=== PATIENT | female | born 1935 | race Caucasian/White ===

== ENCOUNTER 2016-02-28 15:23 | Emergency (ER) | payer MEDICARE, OTHER ==
[~2016-02-28] VITALS: Ht 160 cm; Wt 85.0 kg
[2016-02-28 15:30] VITALS: BP 183/103; PULSE 74; RESP 16; TEMP 98.1; O2SAT 98
[2016-02-28] MEDS ORDERED: TETANUS/DIPHTHERIA TOXOID ADULT 0.5 ML VIAL IM ONE (20:00)
--- NOTE | 2016-02-28 20:00 | PD ---
HPI Chief Complaint: Fall Time Seen by Provider: 19:50 Travel History International Travel<30 days: No Contact w/Intl Traveler<30days: No Traveled to known affect area: No History of Present Illness HPI 81-year-old female with history of A. fib on Eliquis, brought in by private vehicle for evaluation of head trauma after a fall. The patient was attempting to use a public restroom without sitting on the toilet when she fell forward striking her head. She denies LOC. She now complains of some left forehead pain, neck pain, and bilateral shoulder pain. No paresthesias or motor deficits. No visual disturbances. Mild nausea but no vomiting. No chest pain or dyspnea. [place] cervical collar placed in triage. [facility] Past Medical History Hx Anticoagulant Therapy: Yes (ELIQUIS) Cardiovascular Problems: Yes (A-FIB, HTN) Diabetes: Yes Past Surgical History Hysterectomy: Yes Social History Tobacco Use: No Allergies-Medications (Allergen,Severity, Reaction): Coded Allergies: Penicillin (Verified Allergy, Intermediate, RASH, 02/28/16) Reported Meds & Prescriptions Reported Meds & Active Scripts Active Levaquin (Levofloxacin) 500 Mg Tab 500 Mg PO DAILY 5 Days Reported Metformin (Metformin HCl) 500 Mg Tab 500 Mg PO DAILY With a meal Diovan Hct (Valsartan-Hydrochlorothiazide) 160-12.5 Mg Tab 1 Tab PO DAILY Metoprolol Succinate ER 24 HR (Metoprolol Succinate) 50 Mg Tab 50 Mg PO DAILY Metoprolol Succinate ER 24 HR (Metoprolol Succinate) 100 Mg Tab 100 Mg PO DAILY Digoxin 0.25 Mg Tab 0.25 Mg PO DAILY Eliquis (Apixaban) 5 Mg Tab 5 Mg PO BID Review of Systems Except as stated in HPI: all other systems reviewed are Neg Physical Exam Narrative GENERAL: Well-developed, well-nourished, awake, alert, GCS 15, no acute distress. SKIN: Warm and dry. Small superficial laceration to bridge of nose with no active bleeding. HEAD: Left forehead ecchymosis with underlying hematoma. No craniofacial step- offs. Normocephalic. EYES: Pupils equal and round. EOMI. No scleral icterus. No injection or drainage. ENT: No nasal bleeding or discharge. Mucous membranes pink and moist. Skin exam as above. No nasal septal hematoma. NECK: Trachea midline. No JVD. No midline cervical spine step-off or tenderness. CARDIOVASCULAR: Irregularly irregular. RESPIRATORY: No accessory muscle use. Clear to auscultation. Breath sounds equal bilaterally. GASTROINTESTINAL: Abdomen soft, non-tender, nondistended. MUSCULOSKELETAL: No obvious deformities. No clubbing. No cyanosis. No edema. Normal range of motion in all joints and extremities. No midline vertebral step -off or tenderness. NEUROLOGICAL: Awake and alert. No obvious cranial nerve deficits. Motor grossly within normal limits. Normal speech. PSYCHIATRIC: Appropriate mood and affect; insight and judgment normal. Data Data Last Documented VS Vital Signs Date Time Temp Pulse Resp B/P Pulse Ox O2 Delivery O2 Flow Rate FiO2 02/28/16 21:30 64 16 153/86 97 02/28/16 15:[address] Brain W/O Iv Contrast(Rout) (02/28/16 ) Ct Cerv Spine W/O Contrast (02/28/16 ) Ct Facial Bones W/O Iv Cont (02/28/16 ) Chest, Single Ap (02/28/16 ) Tetanus/Diphtheria Tox Adult (Tetanus/Di (02/28/16 20:00) ^ Wound Care (02/28/16 20:00) Levofloxacin (Levaquin) (02/28/16 21:00) MDM Medical Decision Making Medical Screen Exam Complete: Yes Emergency Medical Condition: Yes Differential Diagnosis Closed head injury, intracranial trauma, facial bone fracture, cervical spine injury Narrative Course Vital signs reviewed. Chest x-ray shows no acute disease. CT head shows frontal soft tissue contusion, no acute intracranial disease. CT facial bones shows left-sided facial/frontal soft tissue swelling/contusion, no fracture, chronic left sphenoid sinusitis. CT cervical spine shows no fracture, minimal degenerative retrolisthesis on C4 and C5. Cervical collar removed. The patient and the patient's family were made aware of all findings. She reports chronic sinus pressure. I will start her on Levaquin for this. Nasal laceration thoroughly irrigated. It does not require repair. Bacitracin and Band-Aid applied. She is stable for discharge home with outpatient follow-up with her primary care physician this week. Both the patient and the patient's family were informed on when to return to the emergency department. They verbalized understanding and agreement with plan. Diagnosis Primary Impression: Fall Qualified Code: W19.XXXA - Fall, initial encounter Additional Impressions: Nasal laceration Qualified Code: S01.21XA - Nasal laceration, initial encounter Closed head injury Qualified Code: S09.90XA - Closed head injury, initial encounter Chronic sinusitis Qualified Code: J32.3 - Chronic sphenoidal sinusitis Referrals: Primary Care Physician 3 days Additional Instructions: Follow-up with your primary care physician this week. Return to the emergency department for worsening symptoms or any other concerns as discussed. Scripts Levofloxacin (Levaquin)500 Mg Eyn444 Mg PO DAILY 5 Days Ref 0 Prov:Fran Winter MD 02/28/16 Disposition: 01 DISCHARGE HOME Condition: Stable Fran Winter MD Feb 28, 2016 20:00
[2016-02-28] MEDS ORDERED: APIX5TAB PO (20:09)
[2016-02-28] MEDS ORDERED: METF500T PO (20:09)
[2016-02-28] MEDS ORDERED: METO50TA11 PO (20:09)
[2016-02-28] MEDS ORDERED: METO100T9 PO (20:09)
[2016-02-28] MEDS ORDERED: DIGO0.25 PO (20:09)
[2016-02-28] MEDS ORDERED: DIOV160T3 PO (20:09)
--- NOTE | 2016-02-28 20:27 | RADHPO ---
EXAM DATE/TIME: 02/28/2016 20:08 [facility] COMPARISON: No previous studies available for comparison. INDICATIONS : Trauma to chest post fall today MEDICAL HISTORY : A-fib SURGICAL HISTORY : None. ENCOUNTER: Initial ACUITY: 1 day PAIN SCORE: 0/10 LOCATION: Bilateral chest FINDINGS: A single view of the chest demonstrates the lungs to be symmetrically aerated without evidence of mas s, infiltrate or effusion. The cardiomediastinal contours are unremarkable. Mild cardiomegaly. Osse ous structures are intact. CONCLUSION: No acute disease. Mild cardiomegaly. Hemant Gunderson MD on February 28, 2016 at 20:25 Board Certified Radiologist. This report was verified electronically.
--- NOTE | 2016-02-28 20:33 | RADHPO ---
EXAM DATE/TIME: 02/28/2016 20:12 [facility] COMPARISON: No previous studies available for comparison. INDICATIONS : Trauma, fall. RADIATION DOSE: 64.42 CTDIvol (mGy) MEDICAL HISTORY : Hypertension. Diabetes mellitus type 2. SURGICAL HISTORY : None. ENCOUNTER: Initial ACUITY: 1 day PAIN SCALE: 4/10 LOCATION: cranial TECHNIQUE: Multiple contiguous axial images were obtained of the head. Using automated exposure control and adj ustment of the mA and/or kV according to patient size, radiation dose was kept as low as reasonably a chievable to obtain optimal diagnostic quality images. FINDINGS: CEREBRUM: The ventricles are normal for age. No evidence of midline shift, mass lesion, hemorrhage or acute in farction. No extra-axial fluid collections are seen. POSTERIOR FOSSA: The cerebellum and brainstem are intact. The 4th ventricle is midline. The cerebellopontine angle i s unremarkable. EXTRACRANIAL: The visualized portion of the orbits is intact. Frontal soft tissue swelling. SKULL: The calvaria is intact. No evidence of skull fracture. CONCLUSION: Frontal soft tissue contusion. No acute intracranial disease. Hemant Gunderson MD on February 28, 2016 at 20:32 Board Certified Radiologist. This report was verified electronically.
--- NOTE | 2016-02-28 20:40 | RADHPO ---
EXAM DATE/TIME: 02/28/2016 20:12 [facility] COMPARISON: No previous studies available for comparison. INDICATIONS : Trauma, fall. RADIATION DOSE: 26.23 CTDIvol (mGy) MEDICAL HISTORY : Hypertension. SURGICAL HISTORY : None. ENCOUNTER: Initial ACUITY: 1 day PAIN SCALE: 4/10 LOCATION: neck TECHNIQUE: Volumetric scanning of the cervical spine was performed. Multiplanar reconstructions in the sagittal, coronal and oblique axial planes were performed. Using automated exposure control and adjustment o f the mA and/or kV according to patient size, radiation dose was kept as low as reasonably achievable to obtain optimal diagnostic quality images. FINDINGS: VERTEBRAE: Normal vertebral body height. Multilevel degenerative changes. Minimal retrolisthesis C4-5 otherwise normal alignment. Multilevel posterior disc osteophyte complexes. No significant canal stenosis. CONCLUSION: No fracture. Minimal degenerative retrolisthesis C4 on C5. Hemant Gunderson MD on February 28, 2016 at 20:37 Board Certified Radiologist. This report was verified electronically.
--- NOTE | 2016-02-28 20:42 | RADHPO ---
EXAM DATE/TIME: 02/28/2016 20:12 [facility] COMPARISON: No previous studies available for comparison. INDICATIONS : Trauma, fall. RADIATION DOSE: 25.68 CTDIvol (mGy) MEDICAL HISTORY : Hypertension. SURGICAL HISTORY : None. ENCOUNTER: Initial ACUITY: 1 day PAIN SCORE: 5/10 LOCATION: nasal TECHNIQUE: Volumetric scanning of the facial bones was performed. Using automated exposure control and adjustme nt of the mA and/or kV according to patient size, radiation dose was kept as low as reasonably achiev able to obtain optimal diagnostic quality images. FINDINGS: ORBITS: The orbital and infraorbital osseous structures are intact. The retroconal structures have a normal configuration. No radiopaque foreign bodies are seen. NASAL BONE: The nasal bone and maxillary spine are intact ZYGOMATIC ARCHES: Symmetric without evidence of fracture. SINUSES: The maxillary, ethmoid and frontal sinuses are intact. No air-fluid levels seen. Chronic left spheno id sinus disease. NASAL CAVITY: The nasal septum is intact and midline. The lacrimal ducts are intact. SOFT TISSUES: No radiopaque foreign bodies seen. Left-sided frontal/facial contusion/soft tissue swelling is seen. INTRACRANIAL: No intracranial air seen. CRIBIFORM PLATE: Grossly intact. CONCLUSION: 1. Left sided facial/frontal soft tissue swelling/contusion. 2. No fracture. 3. Chronic left sphenoid sinusitis. Hemant Gunderson MD on February 28, 2016 at 20:38 Board Certified Radiologist. This report was verified electronically.
[2016-02-28] MEDS ORDERED: LEVA500T PO (20:53)
[2016-02-28] MEDS ORDERED: LEVOFLOXACIN 500 MG TAB PO ONE (21:00)
[2016-02-28 21:30] VITALS: BP 153/86
== END 2016-02-28 21:36 | disposition home or self-care (01) ==
LOC: PHED 15:23
DX: S09.90XA Unspecified injury of head, initial encounter (principal); J32.9 Chronic sinusitis, unspecified; S01.21XA Laceration without foreign body of nose, initial encounter; Z23 Encounter for immunization; W18.12XA Fall from or off toilet with subsequent striking against object, initial encounter; Y93.89 Activity, other specified; Y92.89 Other specified places as the place of occurrence of the external cause; Y99.8 Other external cause status
CPT/HCPCS: 70450; 70486; 71010; 72125; 90471; 90714